=== PATIENT | female | born 1955 | race Caucasian/White ===

== ENCOUNTER → 2017-02-25 | Outpatient (CLI) | payer OTHER, MEDICAID | LOC: FIMAGING 10:27 | PROVIDERS: ATTEND Podiatrist Foot & Ankle Surgery | DX: M77.51 Other enthesopathy of right foot and ankle (principal); M89.371 Hypertrophy of bone, right ankle and foot ==

== ENCOUNTER 2017-06-06 06:23 | Emergency (ER) | payer OTHER, MEDICAID ==
[2017-06-06] MEDS ORDERED: HYDROmorphONE/DILAUDID 1 MG/ML INJ IVP ONE ×2 (06:30→07:22)
--- NOTE | 2017-06-06 06:31 | EDPHY ---
H & P Time Seen by Provider: 06/06/17 06:28 HPI/ROS: HPI The patient presents with pain which is diffuse throughout her body and has been present for the last 2 days since her Dilaudid pain pump was replaced 2 days ago at [facility] in [place]. She uses this pump for chronic abdominal pain, thought to be related to chronic pancreatitis. She is followed by Dr. Guanakito Andino as her pain physician. She has had a pump in place for several years though last pump was not working well, so it was replaced. She says her pain is diffuse, achy in nature, associated with restlessness, nausea, shakes throughout her body. She has Percocet which she has been taking at home with some improvement in her symptoms. She is staying with a friend currently in [place]. Family lives in [place]. REVIEW OF SYSTEMS Constitutional: No fever, no chills. Eyes: No discharge. ENT: No sore throat. Cardiovascular: No chest pain, no palpitations. Respiratory: No cough, no shortness of breath. Gastrointestinal: No abdominal pain, no vomiting. Genitourinary: No hematuria. Musculoskeletal: No back pain. Skin: No rashes. Neurological: No headache. PMHx: Chronic pain syndrome, history of pancreatitis, history of abdominal operations, asthma, history of kidney transplant Soc Hx: Currently homeless, staying with a friend in [place] PHYSICAL General Appearance: Alert, crying in pain Eyes: Pupils equal and round no pallor or injection ENT, Mouth: Mucous membranes moist Respiratory: There are no retractions, lungs are clear to auscultation Cardiovascular: Regular rate and rhythm Gastrointestinal: Abdomen is soft and non-tender, Dilaudid pump with dressing in place which is clean dry and intact, there is no overlying erythema, warmth, drainage, no masses, bowel sounds normal Neurological: A&O, moves all extremities Skin: Warm and dry, no rashes Musculoskeletal: Neck is supple non tender Extremities: symmetrical, full range of motion Psychiatric: Patient is oriented X 3, there is no agitation Source: Patient, EMS Exam Limitations: No limitations - Personal History Tetanus Vaccine Date: 2006 Constitutional: Initial Vital Signs Temperature (C) 36.8 C 06/06/17 06:29 Heart Rate 87 06/06/17 06:29 Respiratory Rate 18 06/06/17 06:29 Blood Pressure 179/94 H 06/06/17 06:29 O2 Sat (%) 97 06/06/17 06:29 O2 Delivery Mode Room Air Allergies/Adverse Reactions: amitriptyline [Amitriptyline] Allergy (Severe, Verified 06/06/17 06:33) TROUBLE BREATHING butorphanol tartrate [From Stadol] Allergy (Severe, Verified 06/06/17 06:33) STOPS BREATHING, ANAPHYLATIC estrogens, conjugated [From Premarin] Allergy (Severe, Verified 06/06/17 06:33) STOPS BREATHING, ANAPHYLATIC meperidine HCl [From Demerol] Allergy (Severe, Verified 06/06/17 06:33) TROUBLE BREATHING, SEIZURESS, TREMORS codeine [Codeine] Allergy (Intermediate, Verified 06/06/17 06:33) NAUSEA, EXTREME VOMITING promethazine HCl [From Phenergan] Allergy (Intermediate, Verified 06/06/17 06:33 ) DILLUSIONAL DISCONNECT tetracycline [Tetracycline] Allergy (Intermediate, Verified 06/06/17 06:33) RASH, INCREASE FEVER, TROUBLE BREATHING STRAWBERRIES Allergy (Severe, Uncoded 05/11/09 14:22) STOP BREATHING, ANAPHYLATIC HAYFEVER Allergy (Mild, Uncoded 05/11/09 14:24) NASAL CONGESTION TAPE Allergy (Mild, Uncoded 05/11/09 14:21) Rash Home Medications: Medication Instructions Recorded Dilaudid SPEECH LANG PATH THERAPIST 06/06/17 Estradiol Acetate 06/06/17 Percocet 5-325 mg Tablet 06/06/17 Medical Decision Making Differential Diagnosis: This is a 62-year-old female with history of chronic pain with Dilaudid pain pump in place which was exchanged 2 days ago at outside hospital. Ever since this procedure she is having severe diffuse body pain, restlessness, nausea. Differential diagnosis includes opiate withdrawal from Dilaudid pump malfunction , new onset pancreatitis, appendicitis. In the emergency department, basic labs were checked and were unremarkable. She was given a dose of Dilaudid IV with improvement in her symptoms. She will need to go back to [facility] to have her pump checked to make sure it is functioning properly. This would be difficult to do here is free do not know much about this pump. - Data Points Medications Given: Discontinued Medications Hydromorphone HCl (Dilaudid) 1 mg IVP EDNOW ONE Stop: 06/06/17 06:31 Last Admin: 06/06/17 06:38 Dose: 1 mg Departure - Departure Disposition: Home, Routine, Self-Care Clinical Impression: Opiate withdrawal Condition: Good Instructions: Chronic Pain (ED) Additional Instructions: You should go to [facility] to follow up with your doctors. I wonder if the pain pump is not working properly. Referrals: Patient,NotPresent [Primary Care Provider] - As per Instructions
[2017-06-06 06:33] VITALS: O2SAT 97
[2017-06-06 06:47] LABS: PLATELET COUNT 210 10^3/uL (150-400)
[2017-06-06] MEDS ORDERED: ONDANSETRON 4 MG/2 ML VIAL ONE (07:17)
[2017-06-06] MEDS ORDERED: HYDROmorphONE/DILAUDID 1 MG/ML INJ ONE (07:17)
[2017-06-06] MEDS ORDERED: NS 1,000 ML IV ONE (07:22)
[2017-06-06] MEDS ORDERED: ONDANSETRON 4 MG/2 ML VIAL IVP ONE (07:22)
[2017-06-06 07:44] VITALS: BP 149/84; PULSE 89; RESP 16; TEMP 98.6
== END 2017-06-06 07:44 | disposition home or self-care (01) ==
LOC: EDUNIT#
DX: F11.23 Opioid dependence with withdrawal (principal)
CPT/HCPCS: 96374; 96375; 96376; 99284; J1170; J2405

== ENCOUNTER 2017-06-07 14:09 | Inpatient (IN) | payer OTHER, MEDICAID ==
[2017-06-07] MEDS ORDERED: NS 1,000 ML IV ONE ×2 (14:45)
--- NOTE | 2017-06-07 14:48 | EDPHY ---
H & P Stated Complaint: surg 1/2 in [facility] post op pain n/v seen yesterday for same Time Seen by Provider: 06/07/17 14:36 HPI/ROS: CHIEF COMPLAINT: Vomiting HISTORY OF PRESENT ILLNESS: The patient is a 62-year-old female who comes to the emergency department with her parent figure complaining of vomiting and unable to take p. o.. She had her Dilaudid intrathecal pump replaced on the . She was seen here on the for pain in withdrawal symptoms. She states that she felt better after a dose of Dilaudid here in the ER and was able to go home. Soon after getting home however she began feeling nauseous and vomiting. She states that her pain is now under control and she has confirmed that her new Dilaudid pump is working. She states that now the nausea vomiting are the problem and that this has happened to her previously after anesthesia. She is here requesting IV fluids and Zofran. She has not had a fever. Her wound is clean dry and intact. Her procedure was done [place] where her previous doctors were however she has since moved to [place] and has a new family practice doctor here. No diarrhea. 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 REVIEW OF SYSTEMS: Constitutional: denies: chills, fever, recent illness, recent injury EENTM: denies: blurred vision, double vision, nose congestion Respiratory: denies: cough, shortness of breath Cardiac: denies: chest pain, irregular heart rate, lightheadedness, palpitations Gastrointestinal/Abdominal: See HPI Genitourinary: denies: dysuria, frequency, hematuria, pain Musculoskeletal: denies: joint pain, muscle pain Skin: denies: lesions, rash, jaundice, bruising Neurological: denies: headache, numbness, paresthesia, tingling, dizziness, weakness Hematologic/Lymphatic: denies: blood clots, easy bleeding, easy bruising Immunologic/allergic: denies: HIV/AIDS, transplant EXAM: GENERAL: Well-appearing thin and in no acute distress. HEAD: Atraumatic, normocephalic. EYES: Pupils equal round and reactive to light, extraocular movements intact, sclera anicteric, conjunctiva are normal. ENT: TMs normal, nares patent, oropharynx clear without exudates. Moist mucous membranes. NECK: Normal range of motion, supple without lymphadenopathy or JVD. LUNGS: Breath sounds clear to auscultation bilaterally and equal. No wheezes rales or rhonchi. HEART: Regular rate and rhythm without murmurs, rubs or gallops. ABDOMEN: Soft, nontender, normoactive bowel sounds. No guarding, no rebound. No masses appreciated. BACK: No CVA tenderness, no spinal tenderness, step-offs or deformities EXTREMITIES: Normal range of motion, no pitting or edema. No clubbing or cyanosis. NEUROLOGICAL: Cranial nerves II through XII grossly intact. Normal speech, normal gait. 5/5 strength, normal movement in all extremities, normal sensation PSYCH: Normal mood, normal affect. SKIN: Warm, dry, normal turgor, no visible rashes or lesions. Source: Patient Exam Limitations: No limitations - Personal History Current Tetanus/Diphtheria Vaccine: Yes Tetanus Vaccine Date: 2006 - Medical/Surgical History Hx Asthma: Yes Hx Chronic Respiratory Disease: No Hx Diabetes: No Hx Cardiac Disease: No Hx Renal Disease: Yes Hx Cirrhosis: No Hx Alcoholism: No Hx HIV/AIDS: No Hx Splenectomy or Spleen Trauma: No Other PMH: pancreatitis, congenital kidney disfunction, asthma, surgery x 2 for pain pump implant, renal surg - Family History Significant Family History: No pertinent family hx - Social History Smoking Status: Never smoked Alcohol Use: Sober Drug Use: None Constitutional: Initial Vital Signs Temperature (C) 36.4 C 06/07/17 14:13 Heart Rate 87 06/07/17 14:13 Respiratory Rate 16 06/07/17 14:13 Blood Pressure 166/96 H 06/07/17 14:13 O2 Sat (%) 98 06/07/17 14:13 O2 Delivery Mode Room Air Allergies/Adverse Reactions: amitriptyline [Amitriptyline] Allergy (Severe, Verified 06/07/17 14:11) TROUBLE BREATHING butorphanol tartrate [From Stadol] Allergy (Severe, Verified 06/07/17 14:11) STOPS BREATHING, ANAPHYLATIC estrogens, conjugated [From Premarin] Allergy (Severe, Verified 06/07/17 14:11) STOPS BREATHING, ANAPHYLATIC meperidine HCl [From Demerol] Allergy (Severe, Verified 06/07/17 14:11) TROUBLE BREATHING, SEIZURESS, TREMORS codeine [Codeine] Allergy (Intermediate, Verified 06/07/17 14:11) NAUSEA, EXTREME VOMITING promethazine HCl [From Phenergan] Allergy (Intermediate, Verified 06/07/17 14:11 ) DILLUSIONAL DISCONNECT tetracycline [Tetracycline] Allergy (Intermediate, Verified 06/07/17 14:11) RASH, INCREASE FEVER, TROUBLE BREATHING STRAWBERRIES Allergy (Severe, Uncoded 05/11/09 14:22) STOP BREATHING, ANAPHYLATIC HAYFEVER Allergy (Mild, Uncoded 05/11/09 14:24) NASAL CONGESTION TAPE Allergy (Mild, Uncoded 05/11/09 14:21) Rash Home Medications: Medication Instructions Recorded Acetaminophen [Tylenol 325mg (*)] 325 mg PO Q6 PRN 06/07/17 Estradiol [Estradiol 1 MG (*)] 0.5 mg PO DAILY 06/07/17 Herbals/Supplements -Info Only 1 ea PO DAILY 06/07/17 Lipase 12,000/Amylase/Protease 3 cap PO QID 06/07/17 [Creon 12 (*)] Naproxen Sodium [Aleve 220 MG (*)] 220 mg PO BID PRN 06/07/17 oxyCODONE/APAP 5/325 [Percocet 1 - 2 tab PO Q6H PRN 06/07/17 5/325 (*)] Medical Decision Making ED Course/Re-evaluation: 5:50 p.m. the patient states that she is still feeling nauseous and does not want to try eating. She did take Percocet orally earlier with some crackers and did well with that. She states that she is worried that if she goes home she will began vomiting again and have to come back. We will continue to treat and try more Zofran. She would prefer not to be admitted if possible. 6:30 p.m. the patient failed the p.o. challenge. She vomited after applesauce. Will admit her for further treatment. I discussed the case with Dr. Rowena Strickland. Differential Diagnosis: Partial list of the Differential diagnosis considered include but were not limited to; gastroparesis, chronic pancreatitis, dehydration, vomiting and although unlikely based on the history and physical exam, I also considered ischemia, obstruction. - Data Points Laboratory Results: Laboratory Results 06/07/17 15:06 06/07/17 15:06 Medications Given: Acetaminophen (Tylenol) 650 mg PO Q4 PRN PRN Reason: Pain, Mild/Fever, Can Take PO Stop: 12/04/17 20:46 Last Admin: 06/08/17 04:28 Dose: 650 mg Lipase/Protease/Amylase (Creon) 3 cap PO QID ALINA Stop: 12/04/17 20:59 Last Admin: 06/08/17 13:38 Dose: 3 cap Enoxaparin Sodium (Lovenox) 40 mg SC DAILY ALINA Stop: 12/05/17 08:59 Last Admin: 06/08/17 08:42 Dose: 40 mg Estradiol (Estradiol) 0.5 mg PO DAILY ALINA Stop: 12/05/17 08:59 Last Admin: 06/08/17 08:43 Dose: 0.5 mg Hydromorphone HCl (Dilaudid) 0.2 - 0.4 mg IVP Q2HRS PRN PRN Reason: Pain, Severe Unable to Take PO Stop: 06/17/17 20:46 Last Admin: 06/08/17 02:04 Dose: 0.4 mg Sodium Chloride (Ns) 1,000 mls @ 100 mls/hr IV CONT ALINA Stop: 12/04/17 20:59 Last Admin: 06/08/17 10:22 Dose: 1,000 mls Lorazepam (Ativan Injection) 0.5 mg IVP Q4 PRN PRN Reason: Anxiety, Unable to Take PO Stop: 12/04/17 20:45 Last Admin: 06/08/17 10:48 Dose: 0.5 mg Methocarbamol (Robaxin) 750 mg PO TID PRN PRN Reason: Spasms Stop: 12/04/17 21:59 Last Admin: 06/08/17 13:38 Dose: 750 mg Ondansetron HCl (Zofran) 4 mg IVP Q4 PRN PRN Reason: Nausea/Vomiting, Can't Take PO Stop: 12/04/17 20:46 Last Admin: 06/08/17 10:22 Dose: 4 mg Pantoprazole Sodium (Protonix) 40 mg IVP BID ALINA Stop: 12/05/17 11:14 Last Admin: 06/08/17 11:29 Dose: 40 mg Discontinued Medications Sodium Chloride (Ns) 1,000 mls @ 0 mls/hr IV EDNOW ONE; Wide Open PRN Reason: Protocol Stop: 06/07/17 14:46 Last Admin: 06/07/17 15:12 Dose: 1,000 mls Sodium Chloride (Ns) 1,000 mls @ 0 mls/hr IV EDNOW ONE; Wide Open PRN Reason: Protocol Stop: 06/07/17 14:46 Last Admin: 06/07/17 15:11 Dose: 1,000 mls Ondansetron HCl (Zofran) 4 mg IVP EDNOW ONE Stop: 06/07/17 14:46 Last Admin: 06/07/17 17:08 Dose: 4 mg Ondansetron HCl (Zofran) 4 mg IVP EDNOW ONE Stop: 06/07/17 17:05 Last Admin: 06/07/17 17:10 Dose: Not Given Oxycodone/Acetaminophen (Percocet 5/325) 2 tab PO EDNOW ONE Stop: 06/07/17 15:58 Last Admin: 06/07/17 16:01 Dose: 2 tab Departure - Departure Disposition: [facility] Clinical Impression: Dehydration Vomiting Qualifiers: Vomiting type: unspecified Vomiting Intractability: intractable Nausea presence : with nausea Qualified Code(s): R11.2 - Nausea with vomiting, unspecified Condition: Fair
[2017-06-07] MEDS: ONDANSETRON 4 MG/2 ML VIAL IVP ONE ×2 (15:11→17:08)
[2017-06-07] MEDS ORDERED: OXYCODONE/APAP 5/325 TAB PO ONE (15:57)
[2017-06-07] MEDS ORDERED: ONDANSETRON 4 MG/2 ML VIAL IVP ONE (17:04)
[2017-06-07 17:11] LABS: PLATELET COUNT 241 10^3/uL (150-400)
[2017-06-07] MEDS ORDERED: NAPROXEN SODIUM 220 MG TAB PO PRN (20:45)
[2017-06-07] MEDS ORDERED: traMADol 50 MG TAB PO PRN (20:47)
[2017-06-07] MEDS ORDERED: oxyCODONE IR 5 MG TAB PO PRN (20:47)
[2017-06-07] MEDS: LORazepam 2 MG/ML INJ IVP PRN (20:59)
[2017-06-07] MEDS: HYDROmorphONE/DILAUDID 1 MG/ML INJ IVP PRN (21:00)
--- NOTE | 2017-06-07 21:20 | GHP ---
[f rep st] HISTORY AND PHYSICAL DATE OF ADMISSION: 06/07/2017 CHIEF COMPLAINT: Nausea and vomiting. HISTORY OF PRESENT ILLNESS: The patient is a 62-year-old female, who had her intrathecal Dilaudid pu mp replaced 3 days ago. Ever since surgery, she has had intractable nausea and vomiting. This is he r 2nd ER visit. This is typical for her after any surgery, and she describes this as her typical krysten ction to anesthesia. Prior to the procedure, she was in her normal state of health and doing very we ll. She describes severe spasms of the esophagus. She was observed in the emergency room for a prol onged period of time and failed to progress, so she is now being admitted to observation. Her chroni c pain is unchanged. She does have a little bit of surgical pain at the implantation site of her pum p. PAST MEDICAL HISTORY: 1. Congenitally abnormal kidney anatomy, status post extensive reconstructive surgery. 2. Chronic pancreatitis with chronic pain and Dilaudid pump. 3. History of kidney stones. 4. Neuropathy. 5. Asthma. MEDICATIONS: Please see computer record for a full detailed list. ALLERGIES: Amitriptyline. SOCIAL HISTORY: No smoking. No alcohol. She lives alone. REVIEW OF SYSTEMS: A complete review of systems obtained. Review of systems negative for constituti onal, HEENT, GI, pulmonary, cardiovascular, breast, , hematology, skin, musculoskeletal, endocrine, psych except for positives and negatives as in HPI. FAMILY HISTORY: Reviewed, noncontributory to presenting complaint. PHYSICAL EXAMINATION: GENERAL: Well-developed, well-nourished female, in no acute distress. VITAL SIGNS: Temperature 36.4, pulse 87, blood pressure 132/91, saturating 98% on room air. HEENT: Elizabeth l conjunctivae. Pupils react to light. ENT: Normal ears and nose. Hearing intact. Normal teeth. Oropharynx moist. NECK: Trachea midline. No thyromegaly. CHEST: Normal effort. LUNGS: Clear t o auscultation bilaterally. CARDIOVASCULAR: Regular rhythm. No murmur. No lower extremity edema. ABDOMEN: Soft, nontender. No hepatosplenomegaly. SKIN: Warm, dry, intact. No rash. MUSCULOSKEL ETAL: No cyanosis or clubbing. Strength 5/5 upper and lower extremities. NEURO: Cranial nerves in tact. Normal sensation and light touch. PSYCH: Alert and oriented x3. Normal mood and affect. No rmal judgment and insight. Normal memory. LABORATORY DATA: White count 4.9, hematocrit 47, platelets 241. Sodium 144, potassium 3.9, chloride 104, bicarb 23, BUN 13, creatinine 0.7, glucose 101. LFTs are negative. This case was discussed with Dr. Alli Hinton in the emergency room regarding ER course and difficul ties with discharge. Medical records were reviewed. She has minimal previous records here in our [facility]. She had a lower extremity MRI in February for an orthopedic injury. ASSESSMENT AND PLAN: 1. Intractable nausea and vomiting, after surgery. She describes this as a typical response to anes thesia. She will be treated supportively. Will advance diet as tolerated. 2. Chronic pain with intrathecal Dilaudid pump. She believes the Dilaudid pump is working adequatel y to control her pain. 3. Chronic pancreatitis. Continue lipase with meals. 4. Congenitally abnormal kidney anatomy, status post extensive reconstructive surgery. Her creatini ne is normal. I do not see any indication to image her kidneys at this time. CODE STATUS: Full. ADMISSION STATUS: Will admit to observation and reassess tomorrow regarding ongoing need for hospita lization. DVT PROPHYLAXIS: She is moderate risk. We will place her on subcu Lovenox. /[id number]/MODL
[2017-06-07] MEDS: LIPASE 12,000/AMYLASE/PROTEASE (CREON) 1 CAP PO SCH (22:07)
[2017-06-07] MEDS: NS 1,000 ML IV SCH (22:14)
[2017-06-08] MEDS: ONDANSETRON 4 MG/2 ML VIAL IVP PRN ×4 (02:00→18:41)
[2017-06-08] MEDS: HYDROmorphONE/DILAUDID 1 MG/ML INJ IVP PRN ×2 (02:04→19:40)
[2017-06-08] MEDS: ACETAMINOPHEN 325 MG TAB PO PRN ×2 (04:28→17:00)
[2017-06-08] MEDS: LORazepam 2 MG/ML INJ IVP PRN ×4 (05:28→22:44)
[2017-06-08] MEDS: LIPASE 12,000/AMYLASE/PROTEASE (CREON) 1 CAP PO SCH ×4 (08:41→22:07)
[2017-06-08] MEDS: ENOXAPARIN 40 MG/0.4 ML SYR SC SCH (08:42)
[2017-06-08] MEDS: ESTRADIOL 1 MG TAB PO SCH (08:43)
[2017-06-08] MEDS: NS 1,000 ML IV SCH ×2 (10:22→20:26)
--- NOTE | 2017-06-08 11:12 | HOSPPROG ---
Hospitalist Progress Note Assessment/Plan: 62 yo female with chronic pain, recent intrathecal pump placement, with persistent nausea, vomiting post placement. BP is high today also. Patient is new to me today. patient will require > 2 midnights for medical care; change to inpatient -persistent nausea vomiting and and an inability to maintain adequate fluid hydration. -hypertension: Will treat with hydralazine as p.r.n. -weakness secondary to nausea and vomiting. Note the patient is usually a very active person despite her problems of chronic pain. She runs a and rock climb still with her intrathecal pump. Subjective: Reports feeling weak and a persistent feeling of nausea responsive the Zofran but returns as the Zofran declines. No hematemesis or hematochezia she has a very mild head Objective: Vital Signs Temp Pulse Resp BP Pulse Ox 36.5 C 80 18 165/85 H 96 06/08/17 07:38 06/08/17 07:38 06/08/17 07:38 06/08/17 07:38 06/08/17 07:50 06/07/17 06/08/17 06/09/17 05:59 05:59 05:59 Intake Total 2350 Balance 2350 - Time Spent With Patient Time Spent with Patient: greater than 35 minutes Time Spent with Patient: Greater than 35 minutes spent on this patients care, greater than 50% of time spent counseling, educating, and coordinating care regarding the above mentioned plan. - Pending Discharge Pending Discharge Within 24 Hours: No Pending Discharge Within 48 Hours: Yes Pending Discharge Date: 06/10/17 Pending Discharge Time: 11:00 - Physical Exam Constitutional: chronically ill appearing, other (Acutely ill appearing and pale.) Eyes: PERRL Ears, Nose, Mouth, Throat: moist mucous membranes, hearing normal Cardiovascular: regular rate and rhythym, no murmur, rub, or gallop Respiratory: no respiratory distress, no rales or rhonchi Gastrointestinal: normoactive bowel sounds, no palpable masses, tenderness Genitourinary: no bladder fullness Skin: other (Pale appearing and slightly cool) Musculoskeletal: generalized weakness Neurologic: AAOx3, CN II-XII Intact ICD10 Worksheet Patient Problems: Problems Problem Status Onset Dehydration Acute Vomiting Acute
[2017-06-08] MEDS: PANTOPRAZOLE SODIUM 40 MG VIAL IVP SCH ×2 (11:29→20:26)
[2017-06-08] MEDS: METHOCARBAMOL 750 MG TAB PO PRN (13:38)
--- NOTE | 2017-06-08 14:01 | PDMN ---
Medical Necessity Medical necessity: C/M review: est. > 2 MN LOS for eval and TX of acute and persistent nausea / vomiting, high blood pressure requiring ongoing IV fluids, IV Dilaudid, IV Ativan, IV Zofran, acute inpt PT/OT comorbid recent Dilaidid intrathecal pump placement, chronic pain per 06/08/2017 Hospitalist progress note.
--- NOTE | 2017-06-08 16:35 | ASMTCMCOM ---
CM Note CM Note Notes: Pt. is a 62-year-old woman admitted for vomiting and dehydration. Pt. had her Dilaudid pump replaced three days ago. Pt. began to feel sick after that. Hx. congential kidney issue, chronic pancreatitis, and neuropathy. PT recommending Home d/c. OT recommending homecare. Per notes, Pt. reports that she lives alone and may want to go stay with her brother in [place]. CM to follow for d/c POC. Date Signed: 06/08/2017 04:35 PM Electronically Signed By:hCaro Rodriguez LCSW
[2017-06-08] MEDS: hydrALAZINE 20 MG/ML VIAL IVP PRN ×2 (17:00→22:30)
[2017-06-08] MEDS: FLUTICASONE NASAL 120 SPRAYS/16 GM MDI EACHNARE SCH (21:40)
[2017-06-09] MEDS: HYDROmorphONE/DILAUDID 1 MG/ML INJ IVP PRN ×2 (00:32→22:02)
[2017-06-09] MEDS: ACETAMINOPHEN 325 MG TAB PO PRN (00:36)
[2017-06-09] MEDS: KETOROLAC 15 MG/1 ML SDV IVP PRN ×2 (03:03→17:20)
[2017-06-09] MEDS: NS 1,000 ML IV SCH ×2 (06:33→17:20)
[2017-06-09] MEDS: ESTRADIOL 1 MG TAB PO SCH (08:05)
[2017-06-09] MEDS: PANTOPRAZOLE SODIUM 40 MG VIAL IVP SCH ×2 (08:06→20:41)
[2017-06-09] MEDS: LORazepam 2 MG/ML INJ IVP PRN (08:06)
[2017-06-09] MEDS: LIPASE 12,000/AMYLASE/PROTEASE (CREON) 1 CAP PO SCH ×4 (08:06→20:41)
[2017-06-09] MEDS: ENOXAPARIN 40 MG/0.4 ML SYR SC SCH (08:06)
[2017-06-09] MEDS ORDERED: hydrALAZINE 20 MG/ML VIAL IVP ONE (08:36)
[2017-06-09] MEDS: FLUTICASONE NASAL 120 SPRAYS/16 GM MDI EACHNARE SCH ×2 (13:01→17:23)
[2017-06-09] MEDS: METHOCARBAMOL 750 MG TAB PO PRN ×2 (14:43→20:00)
--- NOTE | 2017-06-09 15:45 | HOSPPROG ---
Hospitalist Progress Note Assessment/Plan: 62 yo female with chronic pain, recent intrathecal pump placement, with persistent nausea, vomiting post placement. Patient seen yesterday with persistent hypertension nausea and vomiting. She reports previously she has had spinal leak headaches when the tube to the anterior thecal space has been manipulated. Per outpatient reports she just had a pump replaced although it is possible there was movement of the intrathecal line. Today I had her lying prone and after 6 hr her headache and hypertension were improved. Patient was much improved and the like to be without her severe headache. -spinal leak headache with persistent nausea and vomiting now improved with prone and flat position. Plan to continue this for the next 24-48 hours and test the patient can tolerate upright intermittently. -hypertension: Has been treated with hydralazine but now improving with lying prone and supine. -palpitations: Patient is reporting palpitations intermittently both during this hospitalization and as an outpatient. An SVT is possible a monitoring manager will be placed today to evaluate this. -weakness secondary to nausea and vomiting. Note the patient is usually a very active person despite her problems of chronic pain. She runs a and rock climb still with her intrathecal pump. Per above she has a history of spinal leak headaches and a believe that is the problem. I would continue 10 you the prone and supine position and test upright position tomorrow on 06/10. Review the monitoring manager for cardiac dysrhythmia Disposition: When the headache is improved and hypertension improved. She can go home The time 50 min case was discussed with nursing with the patient and ideas and solutions were discussed. Medical records have been obtained from the [facility] where she received the pump replacement for her intrathecal medication. The medication now is just Dilaudid only. Subjective: Reports a persistent headache very severe somewhat worse when lying down and worse when sitting up. Hypertension also is occurring somewhat uncontrolled with the use of hydralazine. Objective: Vital Signs Temp Pulse Resp BP Pulse Ox 37.2 C 85 16 141/77 H 95 06/09/17 11:04 06/09/17 13:08 06/09/17 13:08 06/09/17 13:08 06/09/17 11:04 - Time Spent With Patient Time Spent with Patient: greater than 35 minutes Time Spent with Patient: Greater than 35 minutes spent on this patients care, greater than 50% of time spent counseling, educating, and coordinating care regarding the above mentioned plan. - Pending Discharge Pending Discharge Within 24 Hours: No Pending Discharge Within 48 Hours: Yes Pending Discharge Date: 06/11/17 Pending Discharge Time: 11:00 - Physical Exam Constitutional: other (Appears in acute pain and discomfort) Eyes: PERRL, anicteric sclera Ears, Nose, Mouth, Throat: moist mucous membranes, hearing normal Cardiovascular: regular rate and rhythym, no murmur, rub, or gallop Respiratory: no respiratory distress, no rales or rhonchi, clear to auscultation Gastrointestinal: normoactive bowel sounds, tenderness, other (Tenderness in the epigastrium without a palpable mass or rebound.) Genitourinary: no bladder fullness Skin: warm Musculoskeletal: generalized weakness Neurologic: AAOx3, CN II-XII Intact Psychiatric: interacting appropriately ICD10 Worksheet Patient Problems: Problems Problem Status Onset Dehydration Acute Vomiting Acute
[2017-06-09] MEDS: ONDANSETRON 4 MG/2 ML VIAL IVP PRN ×2 (17:50→22:04)
[2017-06-10] MEDS: LORazepam 2 MG/ML INJ IVP PRN ×2 (00:35→15:11)
[2017-06-10] MEDS: METHOCARBAMOL 750 MG TAB PO PRN (04:36)
[2017-06-10] MEDS: HYDROmorphONE/DILAUDID 1 MG/ML INJ IVP PRN ×3 (05:32→15:11)
[2017-06-10 08:12] VITALS: TEMP 98.1
[2017-06-10] MEDS: ONDANSETRON 4 MG/2 ML VIAL IVP PRN ×2 (08:25→12:50)
[2017-06-10] MEDS: ESTRADIOL 1 MG TAB PO SCH (08:35)
[2017-06-10] MEDS: ENOXAPARIN 40 MG/0.4 ML SYR SC SCH (08:36)
[2017-06-10] MEDS: LIPASE 12,000/AMYLASE/PROTEASE (CREON) 1 CAP PO SCH ×2 (08:36→11:38)
[2017-06-10] MEDS: PANTOPRAZOLE SODIUM 40 MG VIAL IVP SCH (08:37)
[2017-06-10] MEDS: KETOROLAC 15 MG/1 ML SDV IVP PRN (11:39)
[2017-06-10 11:46] VITALS: BP 147/81; PULSE 69; RESP 20; O2SAT 96
--- NOTE | 2017-06-10 12:41 | ASMTCMCOM ---
CM Note CM Note Notes: CM spoke w/ Viv Shaikh, SHERIFF'S OFFICER regarding d/c POC. Viv requested phone number for transfer line to [facility] for pt to be transferred to [facility] in [place]. Pts doctor works out of that hospital, Dr. Abad. Viv completed peer to peer. [facility] does not have a bed today. Pt has been put on wait list. CM will be notified once there is a bed available for pt. CM to follow. Plan: Acute transfer to [facility] Date Signed: 06/10/2017 12:39 PM Electronically Signed By:LALITO Parrish
[2017-06-10] MEDS: FLUTICASONE NASAL 120 SPRAYS/16 GM MDI EACHNARE SCH (14:40)
--- NOTE | 2017-06-10 17:17 | GDS ---
[f rep st] DISCHARGE SUMMARY DISCHARGE DIAGNOSES: 1. Nausea and vomiting. 2. Likely spinal leak. 3. Headache. 4. Hypertension. 5. Tachycardia. 6. Palpitations. 7. Dehydration. PHYSICAL EXAM: GENERAL: The patient is alert. VITAL SIGNS: Afebrile at 36.7, pulse is 69, respira tory rate is 20, blood pressure is 147/81. She is saturating 96% on room air. I have seen and evalu ated the patient on the day of discharge. HOSPITAL COURSE: The patient is a 62-year-old female who had an intrathecal Dilaudid pump placed on June 04, 2017, by Dr. Ion Abad in [place]. Since that time, the patient has experienced headaches with nausea and vomiting. She was evaluated in the emergency room on 2 separate occasions and admitted to the hospital secondary to uncontrollable nausea and vomiting as well as headache. The patient was placed in the prone position and has continued this for over 24 hours. It appears th e patient has a spinal leak, and requires potentially a blood patch versus further aggressive interve ntion. I have spoken with Dr. Ion Abad, who has recommended the patient return to [place] for further intervention. She is agreeable to this plan. She will be directly admitted to [facility] for further evaluation and therapy regarding her complications of her intrathecal Dilaudid pump. Her hypertension is stable. She does continue to have intermittent tachycardia and weakness. She de jesus s responded well to IV hydration. I have spent greater than 50 minutes in care, coordination, and management of this patient's hospital course. We were unable to provide the therapies that she requires at this time, and it is recommend ed that she continue therapy with Dr. Abad in [place]. He is in agreement with this plan. I have reviewed with the piano case maker; further intervention and treatment will be obtained at [facility] in [place]. There are no pending studies. DISCHARGE MEDICATIONS: Please refer to EMR form. I have also been in coordination with the patient's new primary pain provider, Dr. Palafox at the [facility]. Again, I have spent greater than 50 minutes in the care, coordination, and management of the patient' s disposition. /[id number]/MODL
--- NOTE | 2017-06-11 09:44 | ASDISCHSUM ---
Discharge Information Plan Status:Acute Transfer Medically Cleared to Leave:06/09/2017 Discharge Date:06/10/2017 03:48 PM CM D/C Disposition: ADT D/C Disposition:[facility] Projected Discharge Date:06/10/2017 12:00 AM Transportation at D/C: Discharge Delay Reason: Follow-Up Date:06/10/2017 12:00 AM Discharge Slot: Final Diagnosis: Placement Information Patient Contact Information Contact Name:SILVINO Relationship:Father Address:[address] [facility] City:[facility] Alternate Phone: [facility]/Zip Code:[place] Email: Financial Information Financial Class: Primary Plan Desc:MEDICARE INPATIENT Primary Plan Number:[id number] Secondary Plan Desc:MEDICAID [place] Secondary Plan Number:[id number] Assessment Information [facility] CM Progress Note CM Note CM Note Notes: Pt. is a 62-year-old woman admitted for vomiting and dehydration. Pt. had her Dilaudid pump replaced three days ago. Pt. began to feel sick after that. Hx. congential kidney issue, chronic pancreatitis, and neuropathy. PT recommending Home d/c. OT recommending homecare. Per notes, Pt. reports that she lives alone and may want to go stay with her brother in [place]. CM to follow for d/c POC. Date Signed: 06/08/2017 04:35 PM Electronically Signed By:Charo Rodriguez LCSW [facility] CM Progress Note CM Note CM Note Notes: CM spoke w/ Viv Shaikh NP regarding d/c POC. Viv requested phone number for transfer line to [facility] for pt to be transferred to [facility] in [place]. Pts doctor works out of that hospital, Dr. Abad. Viv completed peer to peer. [facility] does not have a bed today. Pt has been put on wait list. CM will be notified once there is a bed available for pt. CM to follow. Plan: Acute transfer to [facility] Date Signed: 06/10/2017 12:39 PM Electronically Signed By:LALITO Parrish Case Management Discharge Plan Note Case Management Discharge Discharge Order Complete? Answers: Yes Patient to Obtain Answers: Other Notes: [facility] Medications Transportation Arranged Answers: [facility] will Pick (Date 06/10/2017 03:30 PM & Time) CASSY Complete Answers: Yes Case Management Transport Answers: Yes Form Complete Faxed Final Orders Answers: Yes Agency/Facility Transfer Answers: Yes Report Printed & Faxed to Receiving Agency Family Notified Answers: No Discharge Comments Notes: Pt is being tranferred to [facility] in [place]. CM provided SULEMA Jalloh w/ phone number to give report. Pt will be going to room 700. CM completed PCS form and Emtala form. CM available for changes. Plan: [facility] Date Signed: 06/10/2017 02:32 PM Electronically Signed By:LALITO Parrish Intervention Information
== END 2017-06-10 15:48 | disposition short-term general hospital (02) | DRG 92 ==
LOC: F3E 20:34 → OBSVTOIN 06-08 13:43
PROVIDERS: ADMIT Internal Medicine; ATTEND Internal Medicine
DX: T85.630A Leakage of cranial or spinal infusion catheter, initial encounter (principal); R11.2 Nausea with vomiting, unspecified; R51 Headache; G89.29 Other chronic pain; G62.9 Polyneuropathy, unspecified; Q63.9 Congenital malformation of kidney, unspecified; K86.1 Other chronic pancreatitis; E86.0 Dehydration; R00.2 Palpitations; I10 Essential (primary) hypertension; Z97.8 Presence of other specified devices
CPT/HCPCS: 96374; 97116-GP; 97161-GP; 97165-GO; 97535-GO; G0378; G8978-GP-CJ; G8979-GP-CI; G8987-GO-CI; G8988-GO-CI; J0360; J1170; J1650; J1885; J2060; J2405